=== PATIENT | female | born 1960 | race Caucasian/White ===

== ENCOUNTER 2019-08-01 20:16 | Emergency (ER) | payer OTHER ==
[2019-08-01] MEDS ORDERED: SULFA/TRIMETH 800/160 (DS) TAB 1 EA TAB PO ONE (21:00)
[2019-08-01] MEDS ORDERED: NEOMYCIN-BACITRACIN-POLYMYXIN 0.9 GM UD TOP ONE (21:00)
--- NOTE | 2019-08-01 21:04 | ED.PDOC ---
History of Present Illness - General Chief Complaint: Dental/Mouth Stated Complaint: cut lip at work Time Seen by Provider: 08/01/19 20:25 Source: patient Exam Limitations: no limitations - History of Present Illness Initial Comments: the patient is a 59-year-old female presenting to the emergency room after having been hit in the lip by an air curtain flap while at work just prior to arrival. She sustained a 1 cm fairly superficial laceration to the upper lip that does cross vermilion border. No other injuries. No inner laceration. No loose teeth. Timing/Duration: momentarily Severity: mild Improving Factors: nothing Worsening Factors: nothing Associated Symptoms: denies symptoms Allergies/Adverse Reactions: Allergies Amoxicillin Allergy (Verified 02/26/16 23:03) Diphenhydramine [From Benadryl] Allergy (Verified 02/26/16 23:03) Iodine Allergy (Verified 02/26/16 23:03) Latex Allergy (Verified 02/26/16 23:03) Levofloxacin [From Levaquin] Allergy (Verified 02/26/16 23:03) Review of Systems - Review of Systems Constitutional: States: no symptoms reported EENTM: States: see HPI Respiratory: States: no symptoms reported Cardiology: States: no symptoms reported Gastrointestinal/Abdominal: States: no symptoms reported Genitourinary: States: no symptoms reported Musculoskeletal: States: no symptoms reported Skin: States: see HPI Neurological: States: no symptoms reported All other Systems: No Change from Baseline Past Medical History (General) - Patient Medical History Hx Seizures: No Hx Stroke: No Hx Dementia: No Hx Asthma: No Hx of COPD: No Hx Pacemaker: No Hx Diabetes: No Hx Renal Disease: No Surgical History: Hysterectomy - Vaccination History Hx Tetanus, Diphtheria Vaccination: No Hx Influenza Vaccination: No Hx Pneumococcal Vaccination: No Immunizations Up to Date: Yes - Social History Hx Tobacco Use: Yes Hx Alcohol Use: No Hx Substance Use: No Hx Substance Use Treatment: No Hx Depression: No - Activities of Daily Living Hospice Agency (if applicable):: None - Female History Patient : No - Triage Comment ED Triage Comment: pt ambulated without difficulty to ED dept bed 1. pt voices she cut her lip moving items on shelf during her shift at [employer]. lip is not bleeding and not swollen. 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 Comments: Vital Signs - 24 hr 08/01/19 20:32 Temperature 97.2 F L Pulse Rate 87 Pulse Rate [ 87 monitor] Respiratory 18 Rate Blood Pressure 126/82 [monitor] O2 Sat by Pulse 97 Oximetry Progress - Progress Progress: 08/01/19 21:02 the patient is a 59-year-old female presenting to the emergency room secondary to a 1 cm laceration to the upper left lip that she sustained at work. The wound is cleaned with sterile saline. After risk and benefits of repair were explained the patient agreed to proceed, One simple suture of 5-0 Ethilon was used to reapproximate the laceration across the vermilion border. Patient tolerated this well. KAYLA was applied. The patient received 1 dose of prophylactic Bactrim. The stitches can come out in about 5-7 days. Monitor for any evidence of infection. Apply Neosporin several times daily to prevent drying of the edges of the wound. ER warnings were given. bryce black [id number] Departure - Departure Clinical Impression: Laceration of lip Qualifiers: Encounter type: initial encounter Qualified Code(s): S01.511A - Laceration without foreign body of lip, initial encounter Disposition: Discharge to Home or Self Care Condition: Good Departure Forms: ED Discharge - Pt. Copy, Patient Portal Self Enrollment Instructions: DI for Mouth Pain Diet: regular diet Activity: increase activity as tolerated Additional Instructions: the patient is a 59-year-old female presenting to the emergency room secondary to a 1 cm laceration to the upper left lip that she sustained at work. The wound is cleaned with sterile saline. One simple suture of 5-0 Ethilon was used to reapproximate the laceration across the vermilion border. Patient tolerated this well. KAYLA was applied. The patient received 1 dose of prophylactic Bactrim. The stitches can come out in about 5-7 days. Monitor for any evidence of infection. Apply Neosporin several times daily to prevent drying of the edges of the wound. ER warnings were given.
[2019-08-01 21:45] VITALS: BP 110/89; TEMP 97.1; O2SAT 98
== END 2019-08-01 21:45 | disposition home or self-care (01) ==
LOC: ER 20:16
DX: S01.511A Laceration without foreign body of lip, initial encounter (principal); W22.8XXA Striking against or struck by other objects, initial encounter; Y99.0 Civilian activity done for income or pay; Y92.69 Other specified industrial and construction area as the place of occurrence of the external cause; Z87.891 Personal history of nicotine dependence

== ENCOUNTER → 2020-04-02 | Outpatient (CLI) | payer SELFPAY | LOC: YCFC.O 12:36 | PROVIDERS: ATTEND Nurse Practitioner | DX: N89.8 Other specified noninflammatory disorders of vagina (principal) ==

== ENCOUNTER → 2020-04-13 | Outpatient (CLI) | payer OTHER ==
--- NOTE | 2020-04-14 07:57 | CT ---
EXAM DESCRIPTION: Abdoment/Pelvis w/o Contrast CLINICAL HISTORY: 59 years, Female, ABD PAIN COMPARISON: None. TECHNIQUE: CT of the abdomen and pelvis is performed without IV or p.o. contrast. Multiplanar reconstructions were obtained. FINDINGS: Partially limited evaluation without intravenous contrast. Mild bibasilar subsegmental atelectasis. The Liver, spleen, and pancreas are unremarkable. Few small hepatic cysts. The gallbladder is normal without calcified gallstones. The kidneys are normal in contour without hydronephrosis, nephrolithiasis, or perinephric fluid collection. The ureters are normal in caliber without obstructing stone. No focal bowel wall thickening or bowel obstruction. The appendix is nonvisualized. No free fluid within the pelvis. Changes of prior hysterectomy. The partially distended bladder is normal in appearance. Few scattered retroperitoneal/periaortic lymph nodes are noted, not enlarged by CT criteria. No lymphadenopathy. No acute osseous abnormality. IMPRESSION: 1. No acute abdominopelvic process on noncontrast CT. 2. No urinary tract calculi or hydronephrosis. This exam was performed according to our departmental dose-optimization program, which includes automated exposure control, adjustment of the mA and/or kV according to patient size and/or use of iterative reconstruction technique. Electronically signed by: Mayur Samuels DO 04/14/2020 7:55 AM CDT
== END ==
LOC: YCFC.O 17:12
PROVIDERS: ATTEND Family Medicine
DX: R10.9 Unspecified abdominal pain (principal); R82.998 Other abnormal findings in urine

== ENCOUNTER 2020-04-14 21:02 | Emergency (ER) | payer SELFPAY ==
[2020-04-14] MEDS ORDERED: ALUM & MAG HYDROX-SIMETHICONE 30 ML, LIDOCAINE VISCOUS 2% 15 ML PO ONE ×2 (21:25)
[2020-04-14 21:32] VITALS: TEMP 96.4
[2020-04-14] MEDS ORDERED: SUCRALFATE 1 GM/10 ML 1 GM UD PO ONE (22:08)
[2020-04-14] MEDS ORDERED: SODIUM CHLORIDE 0.9% 1000ML 1,000 ML IVS ONE (22:10)
[2020-04-14] MEDS ORDERED: ONDANSETRON INJ 4 MG/2 ML VIAL IV ONE (22:11)
--- NOTE | 2020-04-14 22:56 | RAD ---
EXAM DESCRIPTION: Abdomen Series CLINICAL HISTORY: 59 years Female, n,v luq pain COMPARISON: FINDINGS: There are multiple nondistended gas-filled loops of small bowel with corresponding air-fluid levels. There is a moderate amount residual stool throughout the colon. There is no evidence of organomegaly. There are no pathologic calcifications. The heart and mediastinum are within normal limits. The lung titus are clear for active infiltrates. The pulmonary vascularity is unremarkable. No active pleural disease is present. IMPRESSION: 1. Findings suggestive of enteritis. Electronically signed by: Eliot Pisano MD 04/14/2020 10:54 PM CDT
[2020-04-14] MEDS ORDERED: SCOPOLAMINE PATCH 1.5MG 1 EA TD ONE (23:18)
[2020-04-14] MEDS ORDERED: HYDROcodone 7.5MG/APAP 325MG 1 EA TAB PO ONE (23:25)
--- NOTE | 2020-04-14 23:29 | ED.PDOC ---
History of Present Illness - General Chief Complaint: Abdominal Pain Stated Complaint: left lower side pain Time Seen by Provider: 04/14/20 21:08 Source: patient Exam Limitations: no limitations - History of Present Illness Initial Comments: The patient is a 59-year-old female presented emergency room secondary to severe left upper quadrant pain. The patient has a very complex and convoluted story. The patient has apparently had longstanding left upper quadrant pain to the order of more than 10 years or so. It has been intermittent in the past but she reports that it is more severe today and over the last week or 2. Patient's pain started getting more severe about a week ago when she started antibiotic treatment for presumed STD. She apparently took doses of azithromycin and doxycycline, after which she promptly vomited. He then had a course of Flagyl and a couple of days after. She had some nausea and vomiting with this which has persisted. It does sound like from her past that she has had a history of longstanding gastritis that has been untreated. The patient saw Dr. García yesterday, and had some blood work done along with a CT scan of the abdomen pelvis which was essentially normal. The patient reports that she has seen GI in the past and has had upper and lower endoscopies done. No fevers. No vomiting of blood. Occasional mild intermittent diarrhea. There is a significant gastroenteritis going around town additionally currently. No shortness of breath. No respiratory symptoms. The patient is extremely anxious and jumps before I even lay hand on her abdomen for the exam. Timing/Duration: unsure Severity: moderate Improving Factors: nothing Worsening Factors: eating Associated Symptoms: loss of appetite, nausea/vomiting Allergies/Adverse Reactions: Allergies Amoxicillin Allergy (Verified 02/26/16 23:03) Diphenhydramine [From Benadryl] Allergy (Verified 02/26/16 23:03) Iodine Allergy (Verified 02/26/16 23:03) Latex Allergy (Verified 02/26/16 23:03) Levofloxacin [From Levaquin] Allergy (Verified 02/26/16 23:03) Penicillins Allergy (Verified 04/14/20 21:33) Home Medications: Ambulatory Orders Famotidine [Pepcid Tab] 20 mg PO BID #60 tab 04/14/20 Ondansetron Odt [Zofran ODT] 4 mg PO Q8HR PRN #5 tab 04/14/20 Sucralfate Tab [Carafate Tab] 1 gm PO QID #120 tab 04/14/20 Review of Systems - Review of Systems Constitutional: States: malaise EENTM: States: no symptoms reported Respiratory: States: no symptoms reported Cardiology: States: no symptoms reported Gastrointestinal/Abdominal: States: abdominal pain, nausea, vomiting Genitourinary: States: no symptoms reported Musculoskeletal: States: no symptoms reported Skin: States: no symptoms reported Neurological: States: anxiety Endocrine: States: no symptoms reported All other Systems: Reviewed and Negative Past Medical History (General) - Patient Medical History Hx Seizures: No Hx Stroke: No Hx Dementia: No Hx Asthma: No Hx of COPD: No Hx Cardiac Disorders: No Hx Congestive Heart Failure: No Hx Pacemaker: No Hx Hypertension: No Hx Thyroid Disease: No Hx Diabetes: No Hx Gastroesophageal Reflux: No Hx Renal Disease: No Hx Cancer: No Hx of HIV: No Hx Hepatitis C: No Hx MRSA: No Surgical History: Hysterectomy, other - Vaccination History Hx Tetanus, Diphtheria Vaccination: Yes Hx Influenza Vaccination: No Hx Pneumococcal Vaccination: No Immunizations Up to Date: Yes - Social History Hx Tobacco Use: Yes Hx Chewing Tobacco Use: No Hx Alcohol Use: Yes Hx Substance Use: No Hx Substance Use Treatment: No Hx Depression: No Feels Threatened In Home Enviroment: No Feels Threatened In a Relationship: No Hx Physical Abuse: No Hx Emotional Abuse: No Hx Suspected Abuse: No - Activities of Daily Living Hospice Agency (if applicable):: None - Female History Patient is a Female of Child Bearing Age (10 -59 yrs old): No Patient : No - Triage Comment ED Triage Comment: recently treated for an STD, completed meds on sunday. Family Medical History - Family History Mother Family History: Unknown Living Status: Unknown Physical Exam - Physical Exam General Appearance: Alert, Anxious Eye Exam: bilateral normal Ears, Nose, Throat: hearing grossly normal, normal pharynx Neck: non-tender, supple Respiratory: lungs clear, normal breath sounds, no respiratory distress, no accessory muscle use Cardiovascular/Chest: normal peripheral pulses, regular rate, rhythm, no edema Peripheral Pulses: radial,right: 2+, radial,left: 2+ Gastrointestinal/Abdominal: soft, other - No definite palpable mass. No definite rebound or involuntary guarding. No bruising. No obvious deformity. Area of maximal discomfort is in the left upper quadrant and epigastric area. 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 The patient is having a scopolamine patch placed which can stay in place up to 72 hours to help reduce nausea. The patient needs to maintain a liquid diet for the next 3 days. The patient is going to be written for Carafate and Pepcid to be taken over the next month. Additionally she needs to pick remover some liquid Maalox or Mylanta to take as needed to reduce symptoms. She will also be written for some Zofran ODT's. This should help with nausea as well. Laboratory work was reassuring. The patient received a liter of IV fluids for mild dehydration. CT scan done yesterday was also reassuring. Follow back up with primary care doctor early next week. Gastritis was likely flared by recent antibiotics as well. ER warnings are given. bryce black [id number] - Results/Orders Results/Orders: Acute abdominal series shows bowel gas pattern consistent with enteritis. Laboratory Tests 04/14/20 04/14/20 04/14/20 22:19 22:28 22:28 WBC 7.8 RBC 4.57 Hgb 14.6 Hct 41.8 MCV 91.4 MCH 32.0 H MCHC 35.0 RDW 13.1 Plt Count 266 MPV 7.0 L Absolute Neuts (auto) 3.60 Absolute Lymphs (auto) 3.30 Absolute Monos (auto) 0.60 Absolute Eos (auto) 0.20 Absolute Basos (auto) 0.10 Neutrophils % 46.0 Lymphocytes % 41.8 Monocytes % 8.2 Eosinophils % 2.6 Basophils % 1.4 PT INR PTT (SP) D-Dimer, Quantitative Sodium 139 Potassium 3.8 Chloride 107 Carbon Dioxide 24 Anion Gap 11.8 L BUN 20 H Creatinine 0.99 BUN/Creatinine Ratio 20.2 H Random Glucose 104 Serum Osmolality 280.5 Lactic Acid Calcium 9.1 Magnesium Total Bilirubin 0.4 AST 19 ALT 20 Alkaline Phosphatase 68 Creatine Kinase 71 CK-MB (CK-2) 1.0 CK-MB (CK-2) % Not Reportable Troponin I < 0.02 B-Natriuretic Peptide < 15.0 Serum Total Protein 7.5 Albumin 4.1 Globulin 3.4 Albumin/Globulin Ratio 1.2 Amylase 61 Lipase Urine Color Yellow Urine Appearance Clear Urine pH 5.5 Ur Specific [place] 1.020 Urine Protein Negative Urine Glucose (UA) Negative Urine Ketones Negative Urine Blood Negative Urine Nitrite Negative Urine Bilirubin Negative Urine Urobilinogen 0.2 Ur Leukocyte Esterase Negative Urine RBC 0 Urine WBC 0-1 Ur Epithelial Cells 0-1 Urine Bacteria 0 04/14/20 04/14/20 04/14/20 22:28 22:28 22:28 WBC RBC Hgb Hct MCV MCH MCHC RDW Plt Count MPV Absolute Neuts (auto) Absolute Lymphs (auto) Absolute Monos (auto) Absolute Eos (auto) Absolute Basos (auto) Neutrophils % Lymphocytes % Monocytes % Eosinophils % Basophils % PT 10.2 INR 1.03 PTT (SP) 24.7 D-Dimer, Quantitative < 131.0 L Sodium Potassium Chloride Carbon Dioxide Anion Gap BUN Creatinine BUN/Creatinine Ratio Random Glucose Serum Osmolality Lactic Acid 1.4 Calcium Magnesium 2.2 Total Bilirubin AST ALT Alkaline Phosphatase Creatine Kinase CK-MB (CK-2) CK-MB (CK-2) % Troponin I B-Natriuretic Peptide Serum Total Protein Albumin Globulin Albumin/Globulin Ratio Amylase Lipase 34 Urine Color Urine Appearance Urine pH Ur Specific [place] Urine Protein Urine Glucose (UA) Urine Ketones Urine Blood Urine Nitrite Urine Bilirubin Urine Urobilinogen Ur Leukocyte Esterase Urine RBC Urine WBC Ur Epithelial Cells Urine Bacteria Departure - Departure Clinical Impression: Gastroenteritis, Mild dehydration Gastritis Qualifiers: Gastritis type: unspecified gastritis Chronicity: chronic Gastritis bleeding: without bleeding Qualified Code(s): K29.50 - Unspecified chronic gastritis without bleeding Disposition: Discharge to Home or Self Care Condition: Fair Departure Forms: ED Discharge - Pt. Copy, Patient Portal Self Enrollment Instructions: Gastritis (DC) Diet: full liquid diet Activity: increase activity as tolerated Referrals: Karolyn García MD [Primary Care Provider] - 1-5 Days Prescriptions: Ondansetron Odt [Zofran ODT] 4 mg PO Q8HR PRN #5 tab PRN Reason: Nausea--Moderate Famotidine [Pepcid Tab] 20 mg PO BID #60 tab Sucralfate Tab [Carafate Tab] 1 gm PO QID #120 tab Home Medications: Ambulatory Orders Famotidine [Pepcid Tab] 20 mg PO BID #60 tab 04/14/20 Ondansetron Odt [Zofran ODT] 4 mg PO Q8HR PRN #5 tab 04/14/20 Sucralfate Tab [Carafate Tab] 1 gm PO QID #120 tab 04/14/20 Additional Instructions: The patient is a 59-year-old female presented emergency room with what appears to be gastroenteritis and gastritis. The patient is having a scopolamine patch placed which can stay in place up to 72 hours to help reduce nausea. The patient needs to maintain a liquid diet for the next 3 days. The patient is going to be written for Carafate and Pepcid to be taken over the next month. Additionally she needs to pick remover some liquid Maalox or Mylanta to take as needed to reduce symptoms. She will also be written for some Zofran ODT's. This should help with nausea as well. Laboratory work was reassuring. The patient received a liter of IV fluids for mild dehydration. CT scan done yesterday was also reassuring. Follow back up with primary care doctor early next week. Gastritis was likely flared by recent antibiotics as well. ER warnings are given.
[2020-04-14 23:45] VITALS: BP 118/84; O2SAT 98
== END 2020-04-14 23:45 | disposition home or self-care (01) ==
LOC: ER 21:02
DX: K52.9 Noninfective gastroenteritis and colitis, unspecified (principal); E86.0 Dehydration; F17.200 Nicotine dependence, unspecified, uncomplicated
CPT/HCPCS: 36415; 74019; 80053; 81001; 82150; 82550; 82553; 83605; 83690; 83735; 83880; 84484; 85025; 85379; 85610; 85730; J2405; J7030